=== PATIENT | female | born 1930 | race Hispanic/Latino ===

== ENCOUNTER 2017-06-04 20:45 | Emergency (ER) | payer OTHER, MEDICARE ==
[2017-06-04 20:53] VITALS: BP 143/108; RESP 16; TEMP 979.8; O2SAT 97
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
[2017-06-04 21:29] LABS: BASO # 0.1 K/uL (0.0-0.2); BASO % 0.7 % (0.0-2.0); EOS # 0.1 K/uL (0.0-0.7); EOS % 1.3 % (0.0-4.0); HEMATOCRIT 38.4 % (34.0-47.0); LYMPH # 0.9 K/uL (1.0-4.3); LYMPH % 9.5 % (20.0-40.0); MEAN CELL VOLUME 83.5 fl (81.0-99.0); MEAN CORPUSCULAR HEMOGLOBIN 26.9 pg (27.0-31.0); MEAN CORPUSCULAR HGB CONC 32.2 g/dL (33.0-37.0); MEAN PLATELET VOLUME 8.5 fl (7.2-11.7); MONO % 10.6 % (0.0-10.0); NEUT # 7.3 K/uL (1.8-7.0); NEUT % 77.9 % (50.0-75.0); PLATELET COUNT 208 K/uL (130-400); RED CELL DISTRIBUTION WIDTH 14.5 % (11.5-14.5); WHITE BLOOD COUNT 9.4 K/uL (4.8-10.8)
[2017-06-04 21:37] LABS: ALB/GLOB RATIO 1.2 (1.0-2.1); CARBON DIOXIDE 22 mmol/L (22-30); CHLORIDE 108 mmol/L (98-107); GFR AFRICAN-AMERICAN 34; GLUCOSE,RANDOM 119 mg/dL (65-105); POTASSIUM 4.7 MMOL/L (3.6-5.0); SODIUM 140 mmol/l (132-148); TOTAL PROTEIN 7.4 G/DL (6.3-8.2)
[2017-06-04 21:39] LABS: ALKALINE PHOSPHATASE 95 U/L (38-126); ALT/SGPT 43 U/L (9-52); AST/SGOT 25 U/L (14-36); BILIRUBIN,TOTAL 0.6 mg/dl (0.2-1.3); BLOOD UREA NITROGEN 39 mg/dl (7-17); CALCIUM 9.3 mg/dL (8.4-10.2)
[2017-06-04 21:51] VITALS: PULSE 73
[2017-06-04 21:58] LABS: PARTIAL THROMBOPLASTIN TIME 33.7 Seconds (25.6-37.1)
[2017-06-05 00:38] LABS: TOTAL CELLS COUNTED 100
[2017-06-05 00:44] LABS: NEUTROPHIL 77 % (42-75)
[2017-06-05 00:45] LABS: EOSINOPHIL 1 % (0-7)
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
--- NOTE | 2017-06-05 12:57 | CARD ---
APPROVED REPORT EKG Measurement Heart [id number] <Conclusion> Sinus rhythm with 1st degree AV block Left axis deviation Left bundle branch block Abnormal ECG
== END 2017-06-04 22:33 | disposition home or self-care (01) ==
LOC: H.ER 20:45
DX: T14.8 Other injury of unspecified body region (principal); V43.52XA Car driver injured in collision with other type car in traffic accident, initial encounter; Y92.410 Unspecified street and highway as the place of occurrence of the external cause; I50.9 Heart failure, unspecified; E03.9 Hypothyroidism, unspecified; I11.0 Hypertensive heart disease with heart failure; Z79.82 Long term (current) use of aspirin; I44.7 Left bundle-branch block, unspecified

== ENCOUNTER 2017-11-15 19:58 | Emergency (ER) | payer MEDICARE, OTHER ==
[2017-11-15 20:05] VITALS: BP 158/76; PULSE 88; RESP 20; TEMP 98; O2SAT 98
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
--- NOTE | 2017-11-15 21:24 | CT ---
EXAM: CT Head Without Intravenous Contrast CLINICAL HISTORY: 87 years old, female; Injury or trauma; Fall; Initial encounter; Concussion / head injury; Consciousness not specified TECHNIQUE: Axial computed tomography images of the head/brain without intravenous contrast. All CT scans at this facility use one or more dose reduction techniques, viz.: automated exposure control; ma/kV adjustment per patient size (including targeted exams where dose is matched to indication; i.e. head); or iterative reconstruction technique. Coronal and sagittal reformatted images were created and reviewed. COMPARISON: No relevant prior studies available. FINDINGS: Brain: Moderate atrophy. No intracranial hemorrhage. No mass. Several scattered foci of decreased attenuation within periventricular/subcortical white matter. No edema. Ventricles: No hydrocephalus. Bones/joints: No calvarial fracture. Vasculature: Atherosclerotic disease of intracranial arteries. Mastoid air cells: No mastoid effusion. IMPRESSION: 1. No intracranial hemorrhage. 2. Nonspecific white matter changes. 3. See facial bone CT report for additional details. 4. Incidental/non-acute findings are described above.
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
== END 2017-11-15 22:24 | disposition home or self-care (01) ==
LOC: H.ER 19:58
DX: S02.2XXA Fracture of nasal bones, initial encounter for closed fracture (principal); S00.31XA Abrasion of nose, initial encounter; R04.0 Epistaxis; I10 Essential (primary) hypertension; Z79.82 Long term (current) use of aspirin; Z88.5 Allergy status to narcotic agent; E03.9 Hypothyroidism, unspecified; W01.0XXA Fall on same level from slipping, tripping and stumbling without subsequent striking against object, initial encounter; Y92.481 Parking lot as the place of occurrence of the external cause